=== PATIENT | female | born 1970 | race Caucasian/White ===

== ENCOUNTER 2021-12-03 04:01 | Inpatient (IN) ==
--- NOTE | 2021-12-03 04:11 | Emergency Department Note ---
Impression & Plan Chest pain ADMIT ED Provider Note HPI: The patient is a 51-year-old female who presents the emergency department with a chief complaint of substernal chest discomfort that is been ongoing for the past hour and a half. Patient states that the pain developed acutely and suddenly, states it was substernal in nature, patient denied any associated shortness of breath. Patient contacted EMS for transport to the ED, she was given morphine and nitroglycerin prior to arrival and she states this did improve her symptoms. She was also given aspirin. Patient states that her pain currently is a 1 out of 10. She is hemodynamically stable on arrival, she is otherwise in no acute distress ROS: -Cardio: Chest pain *10 point review systems was conducted and is otherwise negative unless stated above *Outpatient medications and allergy history reviewed PE: General: Alert, Obese, NAD HEENT: Normocephalic, atraumatic Eyes: Extraocular eye movement is intact, no scleral erythema Pulmonary: Clear to auscultation bilaterally, no wheezing Cardio: Regular rate and rhythm GI: Abdomen is soft, nontender : No suprapubic tenderness MSK: No evidence of trauma or malformation of the extremities, no edema Skin: No evidence of rash Neuro: Alert, no focal deficits Psychiatric: Cooperative international organizer: - An order was placed for continuous cardiac monitoring - Patient was noted to be in sinus rhythm with rate of 90 EKG: Rate: 93 Rhythm: Normal sinus rhythm Intervals: Within normal limits ST changes: No ST elevation Time: 0405 Medical Decision Making: Patient presented to the emergency department with a chief complaint of substernal chest discomfort that began 1.5 hours prior to arrival to the ED. Her pain is almost completely subsided on arrival. EKG does not show any acute ischemic changes, initial high-sensitivity troponin level is elevated at 37. My reassessment the patient is resting comfortably. The remainder of her lab work is largely unremarkable. She is hemodynamically stable. Patient does have multiple risk factors for ACS including obesity, longstanding history of smoking, history of hypertension, history of type 2 diabetes, she is no longer on any therapy for blood pressure or for diabetes. Patient also later admits that with exertion on long walks and going up stairs at times she does get some substernal chest discomfort. She also admits to a family history of heart disease. I feel that she should stay for stress test and further management. Patient was given aspirin prior to arrival to the ED, will hold on heparin drip given that she is asymptomatic at this point. Patient is in agreement for admission. Hospitalist service was consulted for admission and the patient was admitted in stable condition. Heart score = 5 Disposition: Admission Diagnosis: 1. Chest pain, acute 2. Elevated high-sensitivity troponin level 3. Obesity 4. History of smoking Disposition: Admission Pedro Jules DO Emergency Medicine Past Med/Surg History Social History Smoking Status: Former smoker Tobacco Type: Cigarettes Feels Safe at Home: Yes Results & Data (ED) Vital Signs Vital Signs - 24 hr 12/03/21 04:10 12/03/21 04:20 12/03/21 04:22 Temperature 36.7 C Temperature Source Oral Pulse Rate 92 H 96 H Pulse Rate [Apical] Pulse Rhythm Regular Regular Pulse Rhythm [Apical] Pulse Strength Normal Pulse Strength [Apical] Respiratory Rate 18 20 Respiratory Effort / Characteristics Non-Labored Spontaneous Respiratory Depth Normal Respiratory Pattern Regular Blood Pressure 169/105 H Blood Pressure [Right Arm] Blood Pressure Mean 126 Blood Pressure Mean [Right Arm] Blood Pressure Position Semi-fowlers Blood Pressure Position [Right Arm] Pulse Oximetry 94 94 94 Oxygen Delivery Method Room Air Room Air Room Air Oxygen Flow Rate 0 Sepsis Recent Fever Within 48 Hours No Sepsis New/Unexplained Change in Mental Status No Sepsis Action Taken by Nursing No Action Required 12/03/21 04:37 Temperature Temperature Source Pulse Rate Pulse Rate [Apical] 89 Pulse Rhythm Pulse Rhythm [Apical] Regular Pulse Strength Pulse Strength [Apical] Normal Respiratory Rate 18 Respiratory Effort / Characteristics Non-Labored Spontaneous Respiratory Depth Normal Respiratory Pattern Regular Blood Pressure Blood Pressure [Right Arm] 160/82 H Blood Pressure Mean Blood Pressure Mean [Right Arm] 108 Blood Pressure Position Blood Pressure Position [Right Arm] Semi-fowlers Pulse Oximetry 97 Oxygen Delivery Method Room Air Oxygen Flow Rate Sepsis Recent Fever Within 48 Hours Sepsis New/Unexplained Change in Mental Status Sepsis Action Taken by Nursing Laboratory Data Result diagrams: 12/03/21 04:10 12/03/21 04:10 Lab Results 12/03/21 12/03/21 12/03/21 Range/Units 04:10 04:10 04:10 WBC 6.79 (4.8-10.8) K/uL RBC 4.31 (4.2-5.4) M/uL Hgb 12.6 (12.0-16.0) g/dL Hct 37.9 (37-47) % MCV 87.9 (80-100) fL MCH 29.2 (25-34) pg MCHC 33.2 (32-36) g/dL RDW Std Deviation 43.8 (36.4-46.3) fL RDW Coeff of Joseline 13.6 (11.5-14.5) % Plt Count 228 (130-400) K/uL MPV 10.5 H (7.4-10.4) fL Immature Gran % (Auto) 0.3 % Neut % (Auto) 58.3 % Lymph % (Auto) 28.9 % Mora % (Auto) 8.7 % Eos % (Auto) 3.7 % Baso % (Auto) 0.1 % Neut # (Auto) 3.96 (1.4-6.5) K/uL Lymph # (Auto) 1.96 (1.2-3.4) K/uL Mora # (Auto) 0.59 (0.11-0.59) K/uL Eos # (Auto) 0.25 (0-0.5) K/uL Baso # (Auto) 0.01 (0-0.2) K/uL Immature Gran # (Auto) 0.02 (0.00-0.02) K/uL PT 10.2 (9.0-12.0) Seconds INR 1.0 (0.9-1.1) APTT 22.7 (21.0-31.0) Seconds PTT Ratio 0.8 Sodium 139 (136-145) mmol/L Potassium 3.8 (3.5-5.1) mmol/L Chloride 106 (98-107) mmol/L Carbon Dioxide 26 (21-32) mmol/L Anion Gap 7 (3-11) BUN 17 (6-23) mg/dl Creatinine 0.66 (0.6-1.2) mg/dl Est Cr Clr Drug Dosing 150.6 ml/min Est GFR ( Amer) 120.2 ml/min Est GFR (Non-Af Amer) 103.7 ml/min BUN/Creatinine Ratio 25.8 H (10-20) Glucose 115 H (70-99(Fasting)) mg/dl Calcium 9.1 (8.5-10.1) mg/dl Total Bilirubin 0.8 (0.2-1.0) mg/dl AST 21 (13-39) U/L ALT 25 (7-52) U/L Alkaline Phosphatase 81 (34-104) U/L Troponin I High Sens 37.2 H (0-14) pg/ml Total Protein 7.2 (6.0-8.3) gm/dl Albumin 4.0 (3.4-5.0) gm/dl Globulin 3.2 (2.5-4.0) gm/dl Albumin/Globulin Ratio 1.3 (0.9-2) Lipase 23 (11-82) U/L Discharge Plan Visit Data Chief Complaint: Chest Pain ED Provider: Pedro Jules Discharge Problem: Chest pain Forms Stand Alone Forms: [facility] Referrals Referrals: PCP,NO [Primary Care Provider] - Discharge Problem: Chest pain Qualifiers: Chest pain type: unspecified Qualified Code(s): R07.9 - Chest pain, unspecified
[2021-12-03 04:26] LABS: Basophils # (auto) 0.01 K/uL (0-0.2); Basophils % (auto) 0.1 %; Eosinophils # (auto) 0.25 K/uL (0-0.5); Eosinophils % (auto) 3.7 %; Hematocrit (blood only) 37.9 % (37-47); Hemoglobin 12.6 g/dL (12.0-16.0); Immature Granulocytes # (auto) 0.02 K/uL (0.00-0.02); Immature Granulocytes % (auto) 0.3 %; Lymphocytes # (auto) 1.96 K/uL (1.2-3.4); Lymphocytes % (auto) 28.9 %; Mean Corpuscular Hemoglobin 29.2 pg (25-34); Mean Corpuscular Hgb Conc 33.2 g/dL (32-36); Mean Corpuscular Volume 87.9 fL (80-100); Mean Platelet Volume 10.5 fL (7.4-10.4); Monocytes # (auto) 0.59 K/uL (0.11-0.59); Monocytes % (auto) 8.7 %; Neutrophils # (auto) 3.96 K/uL (1.4-6.5); Neutrophils % (auto) 58.3 %; Platelet Count 228 K/uL (130-400); RDW Coefficient of Variation 13.6 % (11.5-14.5); RDW Standard Deviation 43.8 fL (36.4-46.3); Red Blood Count 4.31 M/uL (4.2-5.4); White Blood Count 6.79 K/uL (4.8-10.8)
[2021-12-03 04:39] LABS: Partial Thromboplastin Ratio 0.8; Partial Thromboplastin Time 22.7 Seconds (21.0-31.0); Prothrombin Time 10.2 Seconds (9.0-12.0)
[2021-12-03 04:50] LABS: Troponin I High Sensitivity 37.2 pg/ml (0-14)
[2021-12-03 04:55] LABS: Albumin Globulin Ratio 1.3 (0.9-2); BUN Creatinine Ratio 25.8 (10-20); Bilirubin,Total 0.8 mg/dl (0.2-1.0); Calcium 9.1 mg/dl (8.5-10.1); Creatinine Clr Calc Pharmacy 150.6 ml/min; Est GFR (African American) 120.2 ml/min; Est GFR (Non-African American) 103.7 ml/min; Globulin 3.2 gm/dl (2.5-4.0); Potassium 3.8 mmol/L (3.5-5.1); Total Protein 7.2 gm/dl (6.0-8.3)
[2021-12-03] MEDS ORDERED: lisinopril 2.5 MG TAB PO ONE (05:24)
--- NOTE | 2021-12-03 05:48 | History & Physical Report ---
Date of Service December 03, 2021 Assessment & Plan (1) NSTEMI (non-ST elevated myocardial infarction): Plan: hypertension, slightly elevated Currently not on maintenance medications after losing significant weight. hyperlipidemia, on statin Rx mood disorder, stable GERD, stable on PPI prediabetes, hemoglobin A1c of 5.02 October 2021 past tobacco abuse PCU Aspirin, beta-daniella, statin Initiate IV heparin TTE, Cardiology consult Re: ACS N.p.o. until patient seen by cardiology in a.m. in anticipation of procedure. Update lipid profile DVT prophylaxis. IV heparin Full code Patient fiance requesting updates from providers. Mr. James Weber, contact #[phone]. Text document was generated using [employer] voice recognition software. It may contain grammatical or spelling errors. Kindly contact undersigned for clarification of any documentation item in question. History of Present Illness Chief Complaint: Chest pain Primary Care Provider: Dr. Frey History obtained from patient, family, and records. Medical history significant for hypertension, hyperlipidemia, mood disorder, GERD, prediabetes, LAURENT on CPAP, past tobacco abuse. Patient was at work a few hours ago when she experienced substernal discomfort going to her left arm with some shortness of breath and diaphoresis. Different from reflux. Usual stress associated with wedding preparation this weekend. Short-lived episode a few weeks ago while driving for which patient did not seek consultation. EMS called. Chest pain relieved by aspirin and nitroglycerin spray administration. Patient brought to the ER for evaluation. Patient currently comfortable. Medical History as above Surgical History : Hysterectomy, carpal tunnel surgery Family History : Heart disease, breast cancer, DM, asthma Personal/Social history : Past tobacco abuse, no EtOH intake, factory work Allergies Allergy/AdvReac Type Severity Reaction Status Date / Time Penicillins AdvReac Intermediate Rash Unverified 12/03/21 06:12 Home Medications Medication Instructions Recorded Confirmed Type Probiotic Gummies 2 gummy PO QAM 12/03/21 12/03/21 History atorvastatin 20 mg tablet 20 mg PO QAM 12/03/21 12/03/21 History cyanocobalamin (vitamin B-12) 0 mcg PO QAM 12/03/21 12/03/21 History 1,000 mcg tablet (Vitamin B-12) melatonin 3 mg tablet 3 mg PO QAM 12/03/21 12/03/21 History omeprazole 20 mg capsule,delayed 20 mg PO QAM 12/03/21 12/03/21 History release sertraline 50 mg tablet 50 mg PO QAM 12/03/21 12/03/21 History vitamin B complex 1 tab PO QAM 12/03/21 12/03/21 History Past Med/Surg History Social History Smoking Status: Former smoker Tobacco Type: Cigarettes Smoking End Date: 2016; Hx Alcohol Use: Yes Alcohol type: hard liquor Hx Substance Use: No Preferred Language: Austrian Communication Ability: Effective Tissue Technician Required: No Beliefs That Will Affect Care: None Current Living Situation: Significant Other Other Information That Helps Us Care for You: No Feels Safe at Home: Yes Safety Concerns: Feels Safe At This Time Assistive Devices: Glasses Review of Systems Review of Systems: As per HPI, all other systems reviewed and negative Physical Exam Physical Exam: GENERAL: Comfortable, pleasant, slightly anxious, morbidly obese, no respiratory distress SKIN: Normal color, warm HEENT: Bespectacled, [place] palpebral conjunctivae, no ptosis, moist buccal mucosa NECK : Supple, short neck, no tenderness CHEST : CTA, no tenderness HEART : RRR, no obvious murmurs ABDOMEN: Some distention, nontender EXTREMITIES : No LE swelling/tenderness, no other conspicuous deformities noted NEUROLOGIC : Coherent, no facial asymmetry, no other gross focality Results & Data Results & Data ([facility]) Vital Signs (Past 12 Hours) Vital Signs Temp Pulse Pulse Resp BP BP Pulse Ox 12/03/21 04:37 89 18 160/82 H 97 12/03/21 04:22 36.7 C 96 H 20 169/105 H 94 12/03/21 04:20 92 H 18 94 12/03/21 04:10 94 Laboratory Results Laboratory Results WBC 6.79 K/uL (4.8-10.8) 12/03/21 04:10 RBC 4.31 M/uL (4.2-5.4) 12/03/21 04:10 Hgb 12.6 g/dL (12.0-16.0) 12/03/21 04:10 Hct 37.9 % (37-47) 12/03/21 04:10 MCV 87.9 fL (80-100) 12/03/21 04:10 MCH 29.2 pg (25-34) 12/03/21 04:10 MCHC 33.2 g/dL (32-36) 12/03/21 04:10 RDW Std Deviation 43.8 fL (36.4-46.3) 12/03/21 04:10 RDW Coeff of Joseline 13.6 % (11.5-14.5) 12/03/21 04:10 Plt Count 228 K/uL (130-400) 12/03/21 04:10 MPV 10.5 fL (7.4-10.4) H 12/03/21 04:10 Immature Gran % (Auto) 0.3 % 12/03/21 04:10 Neut % (Auto) 58.3 % 12/03/21 04:10 Lymph % (Auto) 28.9 % 12/03/21 04:10 Bowman % (Auto) 8.7 % 12/03/21 04:10 Eos % (Auto) 3.7 % 12/03/21 04:10 Baso % (Auto) 0.1 % 12/03/21 04:10 Neut # (Auto) 3.96 K/uL (1.4-6.5) 12/03/21 04:10 Lymph # (Auto) 1.96 K/uL (1.2-3.4) 12/03/21 04:10 Bowman # (Auto) 0.59 K/uL (0.11-0.59) 12/03/21 04:10 Eos # (Auto) 0.25 K/uL (0-0.5) 12/03/21 04:10 Baso # (Auto) 0.01 K/uL (0-0.2) 12/03/21 04:10 Immature Gran # (Auto) 0.02 K/uL (0.00-0.02) 12/03/21 04:10 PT 10.2 Seconds (9.0-12.0) 12/03/21 04:10 INR 1.0 (0.9-1.1) 12/03/21 04:10 APTT 22.7 Seconds (21.0-31.0) 12/03/21 04:10 PTT Ratio 0.8 12/03/21 04:10 Sodium 139 mmol/L (136-145) 12/03/21 04:10 Potassium 3.8 mmol/L (3.5-5.1) 12/03/21 04:10 Chloride 106 mmol/L (98-107) 12/03/21 04:10 Carbon Dioxide 26 mmol/L (21-32) 12/03/21 04:10 Anion Gap 7 (3-11) 12/03/21 04:10 BUN 17 mg/dl (6-23) 12/03/21 04:10 Creatinine 0.66 mg/dl (0.6-1.2) 12/03/21 04:10 Est Cr Clr Drug Dosing 150.6 ml/min 12/03/21 04:10 Est GFR ( Amer) 120.2 ml/min 12/03/21 04:10 Est GFR (Non-Af Amer) 103.7 ml/min 12/03/21 04:10 BUN/Creatinine Ratio 25.8 (10-20) H 12/03/21 04:10 Glucose 115 mg/dl (70-99(Fasting)) H 12/03/21 04:10 Calcium 9.1 mg/dl (8.5-10.1) 12/03/21 04:10 Total Bilirubin 0.8 mg/dl (0.2-1.0) 12/03/21 04:10 AST 21 U/L (13-39) 12/03/21 04:10 ALT 25 U/L (7-52) 12/03/21 04:10 Alkaline Phosphatase 81 U/L (34-104) 12/03/21 04:10 Troponin I High Sens 37.2 pg/ml (0-14) H 12/03/21 04:10 Total Protein 7.2 gm/dl (6.0-8.3) 12/03/21 04:10 Albumin 4.0 gm/dl (3.4-5.0) 12/03/21 04:10 Globulin 3.2 gm/dl (2.5-4.0) 12/03/21 04:10 Albumin/Globulin Ratio 1.3 (0.9-2) 12/03/21 04:10 Lipase 23 U/L (11-82) 12/03/21 04:10 SARS-CoV-2, RNA, NAAT NEGATIVE (NEGATIVE) 12/03/21 04:55 Diagnostic Findings Chest x-ray as per my interpretation No congestion EKG as per my interpretation : Rate 90, NSR, normal axis, LVH, no ischemia
[2021-12-03] MEDS ORDERED: METOPROLOL SUCC 25MG EXT REL TAB PO STA (06:07)
[2021-12-03] MEDS ORDERED: LACTATED RINGER'S 1,000 ML IV ONE (06:10)
[2021-12-03] MEDS ORDERED: MELATONIN 3 MG TAB PO PRN (06:14)
[2021-12-03] MEDS ORDERED: Patient's ALLERGY Info needs ENTERED SCH (06:15)
[2021-12-03] MEDS ORDERED: Heparin IV Adult Wt-Based Standard *NO* Bolus Protocol IV SCH (06:15)
[2021-12-03] MEDS ORDERED: HEPARIN SODIUM/DEXTROSE 25,000 UNITS/500 ML BAG IV SCH (06:30)
[2021-12-03] MEDS ORDERED: MoRPHine SULFATE 4 MG/ML 1 ML CARP\\VIAL IV PRN (07:26)
[2021-12-03] MEDS ORDERED: traMADol HCL 50 MG TABLET PO PRN (07:26)
[2021-12-03] MEDS ORDERED: LORazepam 2 MG/1 ML VIAL IV PRN (07:26)
[2021-12-03] MEDS ORDERED: ACETAMINOPHEN 325 MG TAB PO PRN (07:26)
[2021-12-03] MEDS ORDERED: NITROGLYCERIN SL 0.4 MG/TAB TAB SL PRN (07:26)
[2021-12-03] MEDS ORDERED: PROMETHAZINE HCL 12.5 MG in SODIUM CHLORIDE 0.9% 50 ML IV PRN (07:26)
[2021-12-03 07:49] LABS: Thyroid Stimulating Hormone 4.992 uIu/ml (0.300-4.500)
--- NOTE | 2021-12-03 08:10 | XRay Report ---
XR chest 1V portable CLINICAL HISTORY: Atypical chest pain TECHNIQUE: Single frontal radiograph of the chest was obtained. Comparison: None available at the time of this dictation. FINDINGS: No lines and tubes are seen. The cardiomediastinal silhouette is normal. The lungs are clear. No evid ence of pleural effusion or pneumothorax. IMPRESSION: No acute chest disease. ACT 112: Negative or not required by law. Electronically signed by: Aneudy Suazo M.D. 12/03/2021 8:09 AM
[2021-12-03 08:21] LABS: T4 Free Thyroxine 0.77 ng/dl (0.61-1.60)
[2021-12-03] MEDS ORDERED: ATORVASTATIN 20 MG PO SCH (09:00)
[2021-12-03] MEDS ORDERED: ATORVASTATIN 20 MG TAB PO SCH (09:00)
--- NOTE | 2021-12-03 09:36 | Cardiology Consultation ---
Date of Consultation December 03, 2021 Assessment & Plan (1) NSTEMI (non-ST elevated myocardial infarction): 51-year-old female admitted with NSTEMI. Currently pain-free overnight. We will hold intravenous heparin in anticipation of cardiac catheterization. Risk, benefits, and alternatives to procedure discussed. Patient agreeable to proceed. She is a drug-eluting stent candidate. Titrate atorvastatin to 80 mg daily. Continue aspirin and metoprolol succinate. Further recommendations p ending result of coronary angiography. History of Present Illness Reason for Consultation: NSTEMI Requesting Physician: Dr. Morrison Attending Physician: Xenia Olvera MD History of Present Illness 51-year-old female present to the emergency department with substernal chest discomfort rating to her left arm. Pain began in the early a.m. hours. She summoned EMS who treated her with 4 low-dose aspirin and 2 sprays of sublingual nitroglycerin. Pain down to 1/10 upon arrival to the ER. No ischemic EKG changes. Initial high-sensitivity troponin elevated with more than 20 point increase on repeat. Currently she is pain-free. Denies personal history of coronary disease, congestive heart failure, rheumatic fever as a child, or peripheral vascular disease. Admits to history of diabetes which improved after weight loss. Telemetry reveals sinus rhythm. Preliminary review of bedside 2D transthoracic echocardiogram demonstrates normal wall motion. Allergies Allergy/AdvReac Type Severity Reaction Status Date / Time Penicillins AdvReac Intermediate Rash Unverified 12/03/21 06:12 Home Medications Medication Instructions Recorded Confirmed Type Probiotic Gummies 2 gummy PO QAM 12/03/21 12/03/21 History atorvastatin 20 mg tablet 20 mg PO QAM 12/03/21 12/03/21 History cyanocobalamin (vitamin B-12) 0 mcg PO QAM 12/03/21 12/03/21 History 1,000 mcg tablet (Vitamin B-12) melatonin 3 mg tablet 3 mg PO QAM 12/03/21 12/03/21 History omeprazole 20 mg capsule,delayed 20 mg PO QAM 12/03/21 12/03/21 History release sertraline 50 mg tablet 50 mg PO QAM 12/03/21 12/03/21 History vitamin B complex 1 tab PO QAM 12/03/21 12/03/21 History Patient History Social History Smoking Status: Former smoker Tobacco Type: Cigarettes Smoking End Date: 2016; Hx Alcohol Use: Yes Alcohol type: hard liquor Hx Substance Use: No Preferred Language: Cook Islander Communication Ability: Effective Maid Housekeeper Required: No Beliefs That Will Affect Care: None Current Living Situation: Significant Other Other Information That Helps Us Care for You: No Feels Safe at Home: Yes Safety Concerns: Feels Safe At This Time Assistive Devices: Glasses Review of Systems Review of Systems: All systems reviewed & are unremarkable except as noted in Subjective Physical Exam Constitutional: well developed and well nourished; no acute distress and not ill appearing Respiratory: normal respiratory effort; no respiratory distress, no labored breathing and no retractions Cardiovascular: Rate/Rhythm: regular rate and regular rhythm Heart Sounds: normal S1 and normal S2; no murmur Vessels: femoral pulses present and radial pulses present; no JVD and no carotid bruit Extremities: no edema Gastrointestinal (Abdomen): Inspection/Auscultation: abdomen normal to inspection and normal bowel sounds; abdomen not distended Percussion/Palpation: abdomen soft; abdomen nontender, no guarding and abdomen not rigid Neurologic: CN's II-XI intact bilaterally and moves all extremities; no focal motor deficits Motor/Sensory: no tremor Psychiatric: A+Ox3, euthymic affect Results & Data ([facility]) Vital Signs (Past 12 Hours) Vital Signs Temp Pulse Pulse Resp BP BP Pulse Ox 12/03/21 07:26 12/03/21 07:17 88 22 159/111 H 93 12/03/21 06:55 94 H 18 162/101 H 96 12/03/21 06:00 85 18 158/93 H 97 12/03/21 04:37 89 18 160/82 H 97 12/03/21 04:22 36.7 C 96 H 20 169/105 H 94 12/03/21 04:20 92 H 18 94 12/03/21 04:10 94 Pulse Ox 12/03/21 07:26 94 12/03/21 07:17 12/03/21 06:55 12/03/21 06:00 12/03/21 04:37 12/03/21 04:22 12/03/21 04:20 12/03/21 04:10
--- NOTE | 2021-12-03 09:39 | Pre Anesthesia Assessment ---
Date of Service December 03, 2021 Pre Sedation Assessment Vital Signs Temp Pulse Pulse Resp BP BP Pulse Ox 12/04/21 07:41 36.8 C 67 16 179/103 H 95 12/04/21 07:26 12/04/21 04:05 36.9 C 67 18 144/70 H 94 12/04/21 00:49 37.0 C 70 18 132/63 92 12/03/21 19:56 36.8 C 71 18 153/100 H 95 12/03/21 16:46 36.6 C 73 16 172/100 H 96 12/03/21 16:00 71 12/03/21 15:30 69 16 154/99 H 95 12/03/21 14:05 78 16 126/89 96 12/03/21 14:00 36.8 C 77 18 144/74 H 97 12/03/21 13:46 74 18 124/85 96 12/03/21 12:46 66 14 145/92 H 96 12/03/21 12:16 67 18 158/82 H 95 12/03/21 12:01 36.6 C 68 16 162/91 H 96 12/03/21 11:43 66 18 132/86 99 12/03/21 11:30 64 16 140/83 99 12/03/21 11:18 69 18 150/95 H 99 Pulse Ox 12/04/21 07:41 12/04/21 07:26 95 12/04/21 04:05 12/04/21 00:49 12/03/21 19:56 12/03/21 16:46 12/03/21 16:00 12/03/21 15:30 12/03/21 14:05 12/03/21 14:00 12/03/21 13:46 12/03/21 12:46 12/03/21 12:16 12/03/21 12:01 12/03/21 11:43 12/03/21 11:30 12/03/21 11:18 Cardiovascular + regular rate and + regular rhythm + S1 normal and + S2 normal; no murmur + radial pulses present; no JVD and no carotid bruit no edema Respiratory no respiratory distress and no labored breathing + crackles, + rales, + rhonchi and + wheezes Pre-Sedation Airway Assessment Smoking Status: Former smoker Mallampati Class: III 3 NPO Status Date of Last Intake of Fluids: 12/02/21 Date of Last Intake of Solid Food: 12/02/21 Procedure Planning Contraindications for Sedation: none Current Medications Reviewed: Yes Notes The planned sedation has been discussed with the patient. Informed Consent was obtained. I have identified the patient, determined the appropriateness of sedation and have assessed the patient immediately prior to the procedure. All medicine(s) and interventions are by my order.
[2021-12-03] MEDS ORDERED: HEPARIN (PORCINE) 1000 UNIT/ML 10 ML (CATH LAB USE ONLY) ONE (09:49)
[2021-12-03] MEDS ORDERED: MIDAZOLAM HCL 1 MG/ML 2ML VIAL ONE (09:49)
[2021-12-03] MEDS ORDERED: niCARdipine HCL INJ 2.5 MG/ML 10 ML AMP ONE (09:49)
[2021-12-03] MEDS ORDERED: fentaNYL citrate 100 MCG/2 ML VIAL ONE (09:49)
[2021-12-03] MEDS ORDERED: NITROGLYCERIN/D5W 100MCG/ML 20ML SYR ONE (09:50)
[2021-12-03] MEDS ORDERED: LIDOCAINE 1% LOCAL 20 ML VIAL ONE (09:50)
--- NOTE | 2021-12-03 11:17 | Post Anesthesia Assessment ---
Date of Service December 03, 2021 Post Sedation Assessment Vital Signs Temp Pulse Pulse Resp BP BP Pulse Ox 12/04/21 07:41 36.8 C 67 16 179/103 H 95 12/04/21 07:26 12/04/21 04:05 36.9 C 67 18 144/70 H 94 12/04/21 00:49 37.0 C 70 18 132/63 92 12/03/21 19:56 36.8 C 71 18 153/100 H 95 12/03/21 16:46 36.6 C 73 16 172/100 H 96 12/03/21 16:00 71 12/03/21 15:30 69 16 154/99 H 95 12/03/21 14:05 78 16 126/89 96 12/03/21 14:00 36.8 C 77 18 144/74 H 97 12/03/21 13:46 74 18 124/85 96 12/03/21 12:46 66 14 145/92 H 96 12/03/21 12:16 67 18 158/82 H 95 12/03/21 12:01 36.6 C 68 16 162/91 H 96 12/03/21 11:43 66 18 132/86 99 12/03/21 11:30 64 16 140/83 99 12/03/21 11:18 69 18 150/95 H 99 Pulse Ox 12/04/21 07:41 12/04/21 07:26 95 12/04/21 04:05 12/04/21 00:49 12/03/21 19:56 12/03/21 16:46 12/03/21 16:00 12/03/21 15:30 12/03/21 14:05 12/03/21 14:00 12/03/21 13:46 12/03/21 12:46 12/03/21 12:16 12/03/21 12:01 12/03/21 11:43 12/03/21 11:30 12/03/21 11:18 Recovery Score Respiration: Deep Breath/Cough Circulation: +/-20% PreAnes Value Consciousness: Arouseable (by name) Oxygen Saturation: > 92% On Room Air Discharge Sedation Level of Care: Phase I Post Sedation Plan On clinical assessment, the patient appears to have tolerated the sedation without complications. Patient is recovering as anticipated. Patient will continue to be monitored by nursing and may be discharged when sedation discharge criteria are met per below protocol. Upon Completions of procedure up to 15 minutes continue every 5 minute vital signs and the P.A.R. score; then discharge to a Phase I or Fast Track to Phase II per the following guidelines: * Discharge Patient to appropriate Phase II area if PAR is 8 or greater or return to pre- procedure baseline. The post - procedure orders will be as directed. * If PAR score is less than 8 or not return to pre-procedure baseline then patient will follow Phase I monitoring till PAR is reached for Phase II. The Phase I may be done in procedure room or may call to secure a Phase I area. * If naloxone or flumazenil are used for reversal, hold in Phase I for continued monitoring from when last reversal dose was given for a minimum of 60 minutes or longer pending the nurse and/or physician discretion of patient condition before discharge to Phase II. Please call the Sedation Physician to re-evaluate and complete post-note for discharge to Phase II area. Do NOT discharge from procedure sedation or Phase 1 until post- sedation evaluation note is complete by procedure /sedation MD Sedation Discharge Instructions to be given to the patient at discharge to home.
--- NOTE | 2021-12-03 11:19 | Cardiac Catheterization ---
Cardiac Cath Procedure Full Procedure Date December 03, 2021 Pre-Procedure Diagnosis Pre-Procedure Diagnosis: Non STEMI AUC Score AUC Score: 8 Post-Procedure Diagnosis Post-Procedure Diagnosis: Mild CAD Procedure(s) Performed Procedure(s) Performed: Coronary Angiography and Left Heart Cath Pallet Assembler Obed Caicedo DO Oceanographer Geological(s) Showers RN Estimated Blood Loss Estimated Blood Loss: 5cc Medication(s) Medication(s): Fentanyl, Heparin, Lidocaine 1%, Nicardipine, Nitroglycerin and Versed Summary of Findings Mild nonobstructive coronary artery disease. Hemodynamics Rest Ao:: 139/88/113 Final Ao: 154/89/118 LV: 150/89/118 Recommendations Recommendations: Medical Therapy and/or Counseling Specimens Specimens: None Radiation Exposure (mGy) 1159 Contrast (mls) 50 Fluids (cc crystalloids) Fluids (cc crystalloids): 89 nss Drains Drains: N/A Anesthesia Moderate sedation. Start 1050. End 1106. Sedation monitor Neeru TELLO. Procedural Complication(s) None Disposition PCU I attest to the content of the Intraoperative Record and any orders documented therein. Any exceptions are noted below. ACC Data: Mechanic Chief Cardiac Status Clinical evaluation leading to the procedure 51-year-old female presents emergency department with chest discomfort rating to her left arm and elevated troponin. CAD Presenation: Non STEMI Anginal Classification: CCS IV Coronary Anatomy Dominant: Right Left Main (% Stenosis): Normal LAD (% Stenosis): Distal (10% diffuse) D1 (% Stenosis): Normal Circumflex (% Stenosis): Proximal (10%) OM1 (% Stenosis): Normal (Small vessel) OM2 (% Stenosis): Normal (Moderate caliber vessel) OM3 (% Stenosis): Normal (Small vessel) L PL1 (% Stenosis): Normal (Small vessel) L PL2 (% Stenosis): Normal (Moderate caliber vessel) RCA (% Stenosis): Mid (10% diffuse) R PDA (% Stenosis): Normal R PL1 (% Stenosis): Mid (Small vessel, 10-20% diffuse) R PL2 (% Stenosis): Mid (Small vessel, 10% diffuse) Diagnostic Physicians Name: Obed Caicedo DO Closure Device Percutaneous Entry Location: Radial Recommendations: Medical Therapy and/or Counseling Intraprocedure Events Significant Disection: No Perforation: No
[2021-12-03] MEDS ORDERED: CLOPIDOGREL BISULFATE 300 MG TAB PO STA (11:33)
[2021-12-03] MEDS: PANTOprazole 40 MG TAB PO SCH (12:27)
[2021-12-03] MEDS: SERTRALINE HCL 50 MG TABLET PO SCH (12:27)
[2021-12-03 13:00] LABS: Partial Thromboplastin Ratio 1.2; Partial Thromboplastin Time 32.7 Seconds (21.0-31.0)
--- NOTE | 2021-12-04 06:18 | Electrocardiogram Report ---
Test Reason : Blood Pressure : / mmHG Vent. Rate : 093 BPM Atrial Rate : 093 BPM P-R Int : 196 ms QRS Dur : 092 ms QT Int : 380 ms P-R-T Axes : 054 -05 016 degrees QTc Int : 472 ms Normal sinus rhythm Minimal voltage criteria for LVH, may be normal variant Cannot rule out Inferior infarct , age undetermined Abnormal ECG No previous ECGs available Confirmed by Jace Irwin ([id number]) on 12/04/2021 6:18:28 AM Referred By: REFERRED SELF Confirmed By:Jace Irwin
[2021-12-04 06:45] LABS: Basophils # (auto) 0.02 K/uL (0-0.2); Basophils % (auto) 0.3 %; Eosinophils # (auto) 0.24 K/uL (0-0.5); Eosinophils % (auto) 3.5 %; Hematocrit (blood only) 38.3 % (37-47); Hemoglobin 12.9 g/dL (12.0-16.0); Immature Granulocytes # (auto) 0.02 K/uL (0.00-0.02); Immature Granulocytes % (auto) 0.3 %; Lymphocytes # (auto) 2.09 K/uL (1.2-3.4); Lymphocytes % (auto) 30.2 %; Mean Corpuscular Hemoglobin 30.2 pg (25-34); Mean Corpuscular Hgb Conc 33.7 g/dL (32-36); Mean Corpuscular Volume 89.7 fL (80-100); Mean Platelet Volume 10.6 fL (7.4-10.4); Monocytes # (auto) 0.52 K/uL (0.11-0.59); Monocytes % (auto) 7.5 %; Neutrophils # (auto) 4.02 K/uL (1.4-6.5); Neutrophils % (auto) 58.2 %; Platelet Count 232 K/uL (130-400); RDW Coefficient of Variation 13.7 % (11.5-14.5); RDW Standard Deviation 44.9 fL (36.4-46.3); Red Blood Count 4.27 M/uL (4.2-5.4); White Blood Count 6.91 K/uL (4.8-10.8)
[2021-12-04 07:06] LABS: BUN Creatinine Ratio 23.8 (10-20); Calcium 9.3 mg/dl (8.5-10.1); Chol HDL Ratio 4.4 (0-5); Creatinine Clr Calc Pharmacy 155.8 ml/min; Est GFR (African American) 122.1 ml/min; Est GFR (Non-African American) 105.3 ml/min; Potassium 3.8 mmol/L (3.5-5.1)
[2021-12-04] MEDS: SERTRALINE HCL 50 MG TABLET PO SCH (07:58)
[2021-12-04] MEDS: PANTOprazole 40 MG TAB PO SCH (08:00)
[2021-12-04] MEDS ORDERED: ASPIRIN 81 MG ECTAB PO SCH (09:00)
[2021-12-04] MEDS ORDERED: lisinopril 2.5 MG TAB PO SCH (09:00)
[2021-12-04] MEDS ORDERED: METOPROLOL SUCC 25MG EXT REL TAB PO SCH (09:00)
[2021-12-04] MEDS ORDERED: ATORVASTATIN 40 MG TAB PO SCH (09:00)
[2021-12-04] MEDS ORDERED: CLOPIDOGREL BISULFATE 75 MG TAB PO SCH (09:00)
--- NOTE | 2021-12-04 10:24 | Cardiology Progress Note ---
Date of Service December 04, 2021 Assessment & Plan (1) NSTEMI (non-ST elevated myocardial infarction): (2) HTN (hypertension): (3) Dyslipidemia: Plan: Cardiac catheterization revealed mild nonobstructive coronary disease. Presentation secondary to possible small vessel plaque rupture with spontaneous resolution, coronary vasospasm, versus stress-induced event. Recommend 6-12-month treatment with dual antiplatelet therapy. Titrate atorvastatin to 80 mg daily. Continue metoprolol succinate. Add low-dose TERESE inhibitor to improve blood pressure control. Outpatient cardiology follow-up in 2 weeks. Admission and Anticipated Discharge Date Admission Date: December 03, 2021 Subjective Patient seen examined the bedside. No chest discomfort overnight. Telemetry reveals sinus rhythm. Tolerating current medications. Blood pressure elevated this morning. A.m. labs unchanged. Review of Systems Review of Systems: All systems reviewed & are unremarkable except as noted in Subjective Physical Exam Constitutional: well developed and well nourished; no acute distress and not ill appearing ENMT: Mallampati Class: III Respiratory: normal respiratory effort; no respiratory distress, no labored breathing and no retractions Auscultation: + crackles, + rales, + rhonchi and + wheezes Cardiovascular: Rate/Rhythm: regular rate and regular rhythm Heart Sounds: normal S1 and normal S2; no murmur Vessels: femoral pulses present and radial pulses present; no JVD and no carotid bruit Extremities: no edema Gastrointestinal (Abdomen): Inspection/Auscultation: abdomen normal to inspection and normal bowel sounds; abdomen not distended Percussion/Palpation: abdomen soft; abdomen nontender, no guarding and abdomen not rigid Neurologic: CN's II-XI intact bilaterally and moves all extremities; no focal motor deficits Motor/Sensory: no tremor Psychiatric: A+Ox3, euthymic affect Results & Data ([facility]) Vital Signs (Past 12 Hours) Vital Signs Temp Pulse Resp BP Pulse Ox Pulse Ox 12/04/21 07:41 36.8 C 67 16 179/103 H 95 12/04/21 07:26 95 12/04/21 04:05 36.9 C 67 18 144/70 H 94 12/04/21 00:49 37.0 C 70 18 132/63 92
[2021-12-04 11:41] LABS: Partial Thromboplastin Ratio 0.9; Partial Thromboplastin Time 25.3 Seconds (21.0-31.0)
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
== END 2021-12-04 15:09 | disposition home or self-care (01) | DRG 282 ==
LOC: ED 04:01 → 1E 06:09 → 2E 12:06